=== PATIENT | male | born 1955 | race Caucasian/White ===

== ENCOUNTER 2019-08-30 09:59 | Outpatient (CLI) | payer OTHER, SELFPAY ==
[2019-08-30 10:36] LABS: Basophils Absolute Auto 0.1 K/mm3 (0.0-0.1); Basophils Percent Auto 0.6 % (0.2-1.2); Eosinophils Absolute Auto 0.3 K/mm3 (0-0.3); Eosinophils Percent Auto 3.1 % (0-4.4); Hematocrit 46.8 % (42.0-52.0); Hemoglobin 15.1 g/dL (14.0-18.0); Immature Granulocyte Absolute 0.03 K/mm3 (0.00-0.031); Immature Granulocyte Percent A 0.3 % (0-0.5); Lymphocytes Absolute Auto 2.16 K/mm3 (0.9-3.2); Lymphocytes Percent Auto 23.8 % (18.3-44.2); Mean Corpuscular HGB Conc 32.3 g/dl (32-36); Mean Corpuscular Hemoglobin 29.2 pg (26-34); Mean Corpuscular Volume 90.3 fl (80-100); Mean Platelet Volume 9.9 fl (7.4-10.4); Monocytes Absolute Auto 0.6 K/mm3 (0.1-0.6); Monocytes Percent Auto 6.5 % (2.6-8.5); Neutrophils Percent Auto 65.7 % (45.5-73.1); Platelet Count Result 246 k/mm3 (150-375); Red Blood Count 5.18 M/mm3 (4.6-6.20); Red Cell Distribution Width 13.2 % (11.5-14.5); White Blood Count 9.1 K/mm3 (4.5-10.0)
[2019-08-30 10:48] LABS: Alanine Aminotransferase 32 U/L (4-50); Albumin Level 4.5 g/dL (3.5-5.1); Alkaline Phosphatase 85 U/L (38-126); Aspartate Amino Transferase 28 U/L (17-59); Bilirubin,Total 0.6 mg/dL (0.2-1.3); Blood Urea Nitrogen 25 mg/dL (9-20); Calcium 9.3 mg/dL (8.4-10.2); Carbon Dioxide 28 mmol/L (22-30); Chloride 105 mmol/L (98-107); Cholesterol 147 mg/dL (0-200); Estimated Glomerular Filt Rate > 60; Glucose 122 mg/dL (75-110); HDL Direct 37 mg/dL; Potassium 4.1 mmol/L (3.4-5.0); Sodium 143 mmol/L (137-145); Triglycerides 72 mg/dL (<150)
[2019-08-30 10:59] LABS: LDL Cholesterol Direct 89 mg/dL
[2019-08-30 11:19] LABS: Prostate Specific Antigen 0.9 ng/mL (< OR = 4.0); Total Triiodothyronine (T3) 1.56 NG/ML (0.97-1.69)
[2019-08-30 11:29] LABS: MALB Creatinine Ratio 5.4 mg/g (0-30); Microalbumin Urine Random 8.4 mg/L (0-16.7)
[2019-08-30 11:38] LABS: Free T4 Free Thyroxine 0.93 ng/mL (0.78-2.19); Vitamin D 25 Hydroxy 57.3 ng/mL
[2019-09-02 14:11] LABS: Testosterone Free 33.5 pg/mL (35.0-155.0); Testosterone Total 307 ng/dL (250-1100)
== END 2019-08-30 10:00 | disposition home or self-care (01) ==
PROVIDERS: PCP Family Medicine; Visit Provider Family Medicine
DX: E11.42 Type 2 diabetes mellitus with diabetic polyneuropathy (principal); K57.30 Diverticulosis of large intestine without perforation or abscess without bleeding; E29.1 Testicular hypofunction; R53.1 Weakness; E55.9 Vitamin D deficiency, unspecified; Z12.5 Encounter for screening for malignant neoplasm of prostate
CPT/HCPCS: 36415; 80053; 80061; 82043; 82306; 84153; 84402; 84403; 84439; 84443; 84480; 85025; G0103

== ENCOUNTER 2019-12-13 15:35 | Outpatient (CLI) | payer OTHER, SELFPAY ==
[2019-12-18 11:04] LABS: Reference Lab Test Result Negative
== END 2019-12-13 15:36 | disposition home or self-care (01) ==
PROVIDERS: PCP Family Medicine; Visit Provider Nurse Practitioner Family
DX: R51 Headache (principal); R50.9 Fever, unspecified; R05 Cough
CPT/HCPCS: 36415; 86769

== ENCOUNTER 2020-12-14 10:04 | Outpatient (CLI) | payer OTHER, SELFPAY ==
[2020-12-14 10:44] LABS: Basophils Absolute Auto 0.1 K/mm3 (0.0-0.1); Basophils Percent Auto 0.7 % (0.2-1.2); Eosinophils Absolute Auto 0.2 K/mm3 (0-0.3); Eosinophils Percent Auto 2.4 % (0-4.4); Hematocrit 51.5 % (42.0-52.0); Hemoglobin 16.5 g/dL (14.0-18.0); Immature Granulocyte Absolute 0.05 K/mm3 (0.00-0.031); Immature Granulocyte Percent A 0.6 % (0-0.5); Lymphocytes Absolute Auto 2.45 K/mm3 (0.9-3.2); Lymphocytes Percent Auto 28.5 % (18.3-44.2); Mean Corpuscular Volume 90.5 fl (80-100); Mean Platelet Volume 9.4 fl (7.4-10.4); Monocytes Absolute Auto 0.6 K/mm3 (0.1-0.6); Monocytes Percent Auto 7.1 % (2.6-8.5); Neutrophils Absolute Auto 5.2 K/mm3 (1.3-6.7); Neutrophils Percent Auto 60.7 % (45.5-73.1); Platelet Count Result 254 k/mm3 (150-375); Red Blood Count 5.69 M/mm3 (4.6-6.20); Red Cell Distribution Width 13.4 % (11.5-14.5); White Blood Count 8.6 K/mm3 (4.5-10.0)
[2020-12-14 10:57] LABS: Alanine Aminotransferase 43 U/L (4-50); Albumin Level 4.6 g/dL (3.5-5.1); Alkaline Phosphatase 77 U/L (38-126); Anion Gap 10 mmol/L (8-16); Aspartate Amino Transferase 29 U/L (17-59); Bilirubin,Total 0.5 mg/dL (0.2-1.3); Blood Urea Nitrogen 22 mg/dL (9-20); Calcium 8.9 mg/dL (8.4-10.2); Carbon Dioxide 23 mmol/L (22-30); Chloride 101 mmol/L (98-107); Cholesterol 174 mg/dL (0-200); Estimated Glomerular Filt Rate > 60; Glucose 128 mg/dL (65-110); HDL Direct 41 mg/dL; Potassium 4.1 mmol/L (3.4-5.0); Sodium 134 mmol/L (137-145); Triglycerides 101 mg/dL (<150)
[2020-12-14 11:08] LABS: LDL Cholesterol Direct 104 mg/dL
[2020-12-14 11:53] LABS: Creatinine Urine 163.5 mg/dL
[2020-12-14 11:56] LABS: MALB Creatinine Ratio 4.4 mg/g (0-30); Microalbumin Urine Random 7.2 mg/L (0-16.7)
[2020-12-14 12:05] LABS: Prostate Specific Antigen 2.2 ng/mL (< OR = 4.0)
[2020-12-14 12:09] LABS: Vitamin D 25 Hydroxy 52.6 ng/mL
[2020-12-14 14:35] LABS: Total Triiodothyronine (T3) 1.35 NG/ML (0.97-1.69)
[2020-12-14 14:43] LABS: Free T4 Free Thyroxine 0.81 ng/mL (0.78-2.19)
== END 2020-12-14 10:05 | disposition home or self-care (01) ==
PROVIDERS: PCP Family Medicine; Visit Provider Family Medicine
DX: E11.65 Type 2 diabetes mellitus with hyperglycemia (principal); R53.83 Other fatigue; E29.1 Testicular hypofunction; E55.9 Vitamin D deficiency, unspecified; Z12.5 Encounter for screening for malignant neoplasm of prostate; R80.9 Proteinuria, unspecified
CPT/HCPCS: 36415; 80053; 80061; 82043; 82306; 84153; 84439; 84443; 84480; 84481; 85025

== ENCOUNTER 2021-01-19 09:35 | Outpatient (CLI) | payer MEDICARE, OTHER, SELFPAY ==
[2021-01-23 13:21] LABS: Testosterone Free 66.1 pg/mL (35.0-155.0); Testosterone Total 380 ng/dL (250-1100)
== END 2021-01-19 09:36 | disposition home or self-care (01) ==
LOC: ANHLAB 09:43
PROVIDERS: PCP Family Medicine; Visit Provider Nurse Practitioner
DX: E29.1 Testicular hypofunction (principal)
CPT/HCPCS: 36415; 84402; 84403

== ENCOUNTER 2021-01-21 11:27 | Outpatient (CLI) | payer MEDICARE, OTHER, SELFPAY ==
[2021-01-21 12:46] LABS: Immunoglobulin A 177 mg/dL (70-400); Immunoglobulin G 1133 mg/dL (700-1600); Immunoglobulin M 75 mg/dL (40-230)
[2021-01-21 13:48] LABS: Vitamin D 25 Hydroxy 45.1 ng/mL
== END 2021-01-21 11:28 | disposition home or self-care (01) ==
LOC: ANHLAB 11:46
PROVIDERS: PCP Family Medicine
DX: J32.9 Chronic sinusitis, unspecified (principal); J30.1 Allergic rhinitis due to pollen
CPT/HCPCS: 36415; 82306; 82784; 82785; 86003; 86684

== ENCOUNTER 2022-09-29 16:43 | Emergency (ER) | payer MEDICARE, OTHER, SELFPAY ==
[2022-09-29] VITALS (15 sets, daily range): BP systolic 86–136; BP diastolic 44–82; PULSE 56–70; RESP 14–18; TEMP 36.3; O2SAT 97–100
--- NOTE | 2022-09-29 16:47 | ECG_ITS ---
Measurements Intervals Nunez Rate: 61 P: 71 MS: 157 QRS: 25 QRSD: 89 T: 61 QT: 429 QTc: 435 Interpretive Statements SINUS RHYTHM NORMAL ECG NO PREVIOUS ECG AVAILABLE FOR COMPARISON Electronically Signed On 09-29-2022 18:37:05 CDT by Bhargav Rodríguez D.O.
[2022-09-29] MEDS: SODIUM CHLORIDE 0.9% IV 1,000 ML 999 ML IV CONT ×2 (17:18→18:11)
[2022-09-29 17:23] LABS: Basophils Absolute Auto 0.1 K/mm3 (0.0-0.1); Basophils Percent Auto 0.7 % (0.2-1.2); Eosinophils Absolute Auto 0.1 K/mm3 (0-0.3); Eosinophils Percent Auto 1.6 % (0-4.4); Hemoglobin 13.8 g/dL (14.0-18.0); Immature Granulocyte Absolute 0.03 K/mm3 (0.00-0.031); Immature Granulocyte Percent A 0.3 % (0-0.5); Lymphocytes Absolute Auto 1.64 K/mm3 (0.9-3.2); Lymphocytes Percent Auto 18.4 % (18.3-44.2); Mean Corpuscular HGB Conc 33.7 g/dl (32-36); Mean Corpuscular Hemoglobin 30.3 pg (26-34); Mean Corpuscular Volume 89.9 fl (80-100); Mean Platelet Volume 9.8 fl (7.4-10.4); Monocytes Absolute Auto 0.6 K/mm3 (0.1-0.6); Monocytes Percent Auto 6.2 % (2.6-8.5); Neutrophils Absolute Auto 6.5 K/mm3 (1.3-6.7); Neutrophils Percent Auto 72.8 % (45.5-73.1); Platelet Count Result 180 k/mm3 (150-375); Red Blood Count 4.56 M/mm3 (4.6-6.20); Red Cell Distribution Width 13.5 % (11.5-14.5); White Blood Count 8.9 K/mm3 (4.5-10.0)
[2022-09-29 17:28] LABS: Alanine Aminotransferase 27 U/L (6-50); Albumin Level 4.6 g/dL (3.5-5.1); Alkaline Phosphatase 81 U/L (38-126); Anion Gap 8 mmol/L (8-16); Aspartate Amino Transferase 34 U/L (17-59); Bilirubin,Total 0.5 mg/dL (0.2-1.3); Blood Urea Nitrogen 34 mg/dL (9-20); Carbon Dioxide 25 mmol/L (22-30); Chloride 105 mmol/L (98-107); Estimated CRCL calculation 80 ml/min; Estimated Glomerular Filt Rate > 60; Glucose 123 mg/dL (65-110); Potassium 4.4 mmol/L (3.4-5.0); Sodium 138 mmol/L (137-145)
[2022-09-29 17:28] LABS: Glucose Point of Care 107 mg/dl (65-105)
--- NOTE | 2022-09-29 18:41 | ED.SYNCOPE ---
HPI - Syncope General Chief Complaint: Syncope Stated Complaint: near syncopal episode an hour ago Time Seen by Provider: 09/29/22 17:07 Source: patient and family Mode of arrival: ambulatory Limitations: physical limitation (aphasic from stroke) History of Present Illness HPI narrative: 67-year-old with a history of CVA was brought in by family from home with a near syncopal episode. Patient's family states that they were trying to cut his hair while he was standing in the bathroom all of a sudden he started feeling dizzy, that made him sit on the bathroom commode he broke out in cold sweats. Patient denied any chest pain. No history of nausea or vomiting or abdominal pain. MD complaint: felt faint Onset (ago): hour(s) (1) Prodromal symptoms: none Context: standing up Injuries sustained associated with event: none Current symptoms: back to baseline Treatments prior to arrival: none Related Data Allergies Allergy/AdvReac Type Severity Reaction Status Date / Time povidone-iodine Allergy Unknown RASH Verified 09/29/22 16:44 soap Allergy Unknown RASH Verified 09/29/22 16:44 Review of Systems Review of Systems: All systems reviewed & are unremarkable except as noted in HPI and below Constitutional: Constitutional: Reports no additional constitutional complaints Eyes: Eyes: Reports no additional eye complaints ENT: Reports system reviewed and no additional complaints, except as documented Cardiovascular: Cardiovascular: Reports no additional cardiovascular complaints Respiratory: Respiratory: Reports no additional respiratory complaints Musculoskeletal: Musculoskeletal: Reports no additional musculoskeletal complaints Integumentary/Breasts: Skin/Breast: Reports system reviewed and no additional complaints, except as docu Neurologic: Reports system reviewed and no additional complaints, except as documented Exam Narrative: GENERAL: Well-appearing, well-nourished, and in no acute distress. HEAD: Normocephalic, atraumatic. EYES: PERRLA and EOMI.. NECK: Supple. CHEST: Clear to auscultation. No respiratory distress. HEART: Regular rate and rhythm. No murmur heard. Normal peripheral pulses. ABDOMEN: Soft, nontender, nondistended, normal active bowel sounds. EXTREMITIES: Normal range of motion. No edema. SKIN: Warm, dry, no rash. NEURO: No focal deficits. Alert and oriented x3. PSYCH: Normal mood and affect. Course Course Emergency Course: Patient was orthostatic and IV fluids were given. EKG and lab work looks unremarkable. Had a discussion with the family about his lab work, EKG he is feeling much better. Advised him to drink more fluids, follow-up with his primary doctor. Vital Signs Vital signs: Vital Signs Temperature 36.3 C L 09/29/22 16:55 Pulse Rate 62 09/29/22 16:55 Respiratory Rate 16 09/29/22 16:55 Blood Pressure 86/44 L 09/29/22 16:55 Pulse Oximetry 100 09/29/22 16:55 Oxygen Delivery Room Air 09/29/22 16:55 Temperature 36.3 C L 09/29/22 16:55 Pulse Rate 67 09/29/22 18:30 Respiratory Rate 16 09/29/22 18:30 Blood Pressure 136/68 09/29/22 18:21 Pulse Oximetry 100 09/29/22 18:30 Oxygen Delivery Room Air 09/29/22 16:55 MDM - Syncope MDM Narrative Medical decision making narrative: 67-year-old with a history of CVA having expressive aphasia was brought in for near syncopal episode. His exam is unremarkable EKG we will do orthostatic blood pressure if positive will start IV fluids, check labs. Differential Diagnosis Differential diagnosis: Likely syncope due to orthostatic hypotension and vasovagal syncope Lab Data Attestation: I reviewed the patient's lab results. 09/29/22 17:13 09/29/22 17:13 Labs: Lab Results 09/29/22 09/29/22 Range/Units 17:13 17:15 WBC 8.9 (4.5-10.0) K/mm3 RBC 4.56 L (4.6-6.20) M/mm3 Hgb 13.8 L (14.0-18.0) g/dL Hct 41.0 L (42.0-52.0) % MCV 89.9 (80-100) fl MCH 30.3 (2
== END 2022-09-29 18:50 | disposition home or self-care (01) ==
PROVIDERS: Emergency Provider Family Medicine; PCP Family Medicine
DX: I95.1 Orthostatic hypotension (principal); I69.920 Aphasia following unspecified cerebrovascular disease
CPT/HCPCS: 36415; 80053; 82948; 85025; 93005; 96360; 96361; 97530; 99284; J7030

== ENCOUNTER 2022-10-04 10:30 | Outpatient (RCR) | payer MEDICARE, OTHER, SELFPAY ==
--- NOTE | 2022-07-26 14:03 | STOPEVAL1 ---
Assessment and note entered by Cassi Pond, VP GLOBAL Evaluation Information Assessment Status Evaluation Diagnosis Aphasia/Unable to voice Onset 08/27 Subjective Information Patient had a stroke last year and initially had much weakness on his right side that has improved. Patient was in a hospital and then a rehab and both patient and significant other report that he did not have Speech Therapy in those facilities. He then eventually began outpatient Speech Therapy around January of 2022, ending in May of 2021. Patient/s friend reported that patient always has had a soft voice and had to project in order to be heard and understood but now it is more of a whisper. When asked why patient has returned to Speech Therapy, they both report patient wants to be better understood. When asked if patient was having trouble with understanding or expressing himself, he stated, Expressing and his friend stated both are a concern. Friend also expressed that he tends to perseverate, for example, he may name book and then every thing he says after that is book. Reported Pain Level Pain Score 0: Self Report Assessment ST Clinical Summary COMMUNICATION EVALUATION This patient was seen for a speech/language evaluation after suffering a left CVA 11 months ago; he did receive some rehabilitation at the beginning but was [place] state and unable to express if he did receive Speech Therapy then and what they addressed (although it is assumed the rehab center would have worked with his speech/ language). He then returned back to [place] and after his insurance was straightened out, he was able to begin rehab at [facility] in [place], [place] from January through May. He and his significant other decided to begin therapy at [facility] because it is closer to home. Today the patient presents with severe receptive/ expressive aphasia characterized as inconsistent ability to comprehend and express even simple information such as responding to simple questions and expressing simple responses. Perseveration was noted during naming activity; once he labeled an item chair, then he used chair to name several other ite
--- NOTE | 2022-08-29 14:10 | OTOPEVAL1 ---
Assessment and note entered by LAVINIA Barton/Maggie, CHT Evaluation Information Assessment Status Evaluation Diagnosis Left CVA with right sided weakness Onset 08/29/21 Subjective Information Patient is here today with his friend that lives with him. She helps him with household tasks, such as cooking and laundry. She also is his transportation. They report he is independent with bathing and dressing. He is able to carry his laundry basket to the laundry room but is unable to operate the washer/dryer. He is unable to operate the microwave or display maker. They report he mowed the grass today. He is also receiving LOAD MIXER services at this clinic to work on receptive and expressive aphasia. Reported Pain Level Pain Score 0: Self Report Assessment OT Clinical Summary Patient referred to outpatient OT due to a decline in ADL independence following CVA ~1 year ago, which has impacted his ability to complete household tasks/IADLs. He will benefit from skilled OT to maximize functional safety and independence. Plan of Care Interventions Therapeutic Exercise,Therapeutic Activities,Self- Care/Home Management,Visual/Perceptual Retrain OT Services Indicated Yes Treatment Frequency and 2x/week for 4 weeks Duration These treatments will address the objective and functional deficits as defined above. The patient will be advanced safely and appropriately in order for the patient to progress towards his/her prior level of function. Additional exercises will be introduced and as well as a comprehensive home exercise program upon discharge, if needed, ?to ensure carryover of functional gains achieved in the clinic. This treatment plan has been reviewed and agreement upon by the patient.
--- NOTE | 2022-08-31 10:41 | BUSTOPDC ---
Assessment and note entered by Cassi Pond, BLOCK MASON Assessment ST Clinical Summary DISCHARGE SUMMARY AND TODAY'S TREATMENT SUMMARY The patient has been seen for a Speech Therapy evaluation and treatment sessions focusing on auditory comprehension and verbal expression along with improving voicing skills since patient whispers and only voices at therapist request. Therapy has focused on addressing auditory comprehension with main focus on responding to even just simple yes/no questions concerning self, surroundings, therapist, and home. Patient has a tendency to respond yes to the first 3-4 questions before receiving a no question that seems to make sense; after that he has been known to correctly respond yes/no although he has never achieved greater than a 70% accuracy. Generally therapist has to use verbal, visual, and written cues to assist with recall; occasionally even cueing does not facilitate a correct response. Patient also has been routinely given 12 common pictured household items; he is often able to name the item, and certainly able to identify the item however given function of objects, description of objects by parts and by color, patient is not able to identify these correctly, even when placed in writing in single word form. Patient was re-evaluated using the same yes/no questions and pictured items on the initial evaluation and demonstrated no significant change in responses. His yes/no responses were as inaccurate as initial evaluation although much time was spent on this task. He did exhibit mildly improved ability to comprehend short paragraphs as this had been addressed during treatment sessions but not enough to be significant. Additionally, he also exhibited increased use of nouns given the [employer] picture from the [facility] however, again, improvement was not significant enough to recommend continuing direct Speech Therapy. Therapist spoke with patient's signfificant other who voiced that patient also is showing no significant increases in communication skills at
--- NOTE | 2022-10-04 11:20 | OTOPDC ---
Assessment and note entered by Kashmir Palma, LAVINIA/Maggie, CHT Evaluation Information Assessment Status Discharge Diagnosis Left CVA with right sided weakness Onset 08/29/21 Subjective Information Patient has participated in 4 weeks of outpatient OT to work on strategies to help him be more independent with household tasks. He has severe receptive and expressive aphasia. He is here today with his friend that lives with him. She reports he is now independently making his own coffee. They have utilized compensatory techniques to help him now be able to use the microwave also. They have not really tried the compensatory techniques to help him be an active participant with making the grocery list. He continues to have severe difficulties with writing, but is able to copy letters and words. He has been working on word search puzzles for letter identification. Reported Pain Level Pain Score 0: Self Report Assessment OT Clinical Summary Patient referred to outpatient OT due to a decline in ADL independence following CVA ~1 year ago, which has impacted his ability to complete household tasks/IADLs. OT has utilized compensatory strategies to help him become a more active participant in household tasks, such as making coffee and using the microwave. These areas he has improved in, however, progressing to higher levels of meal prep are limited. For example, it would still be too unsafe for him to attempt to use the stove to help with meal prepping due to cognitive deficits and decreased problem solving skills. Discussed with the patient and his caregiver today having puzzles and activity books for him to complete at home for daily stimulation. They verbalized understanding of all recommendations and instructions today. No further skilled OT indicated. Thank you for this referral. Plan of Care OT Services Indicated No
== END 2022-10-04 12:59 | disposition home or self-care (01) ==
LOC: ANHOT 10:30
PROVIDERS: PCP Family Medicine; Visit Provider Family Medicine
DX: I69.320 Aphasia following cerebral infarction (principal)
CPT/HCPCS: 92507; 92523; 97110; 97166; 97530

== ENCOUNTER 2022-11-02 09:49 | Outpatient (CLI) | payer MEDICARE, OTHER, SELFPAY ==
--- NOTE | ~2022-11-02 | XR_ITS ---
AP and lateral views of the left hip Clinical history: Pain Findings: No acute fracture or dislocation is seen. Left hip arthroplasty is in place, without eviden ce for hardware complication. Soft tissues are unremarkable. Impression: No acute abnormality seen. Left hip arthroplasty in place. Reviewed, dictated and finalized at location . Impression: No acute abnormality seen. Left hip arthroplasty in place.
== END 2022-11-02 09:50 | disposition home or self-care (01) ==
LOC: ANHIMG 09:53
PROVIDERS: PCP Family Medicine; Visit Provider Nurse Practitioner Adult Health
DX: Z96.642 Presence of left artificial hip joint (principal); M25.552 Pain in left hip
CPT/HCPCS: 73502